=== PATIENT | female | born 1985 | race Caucasian/White ===

== ENCOUNTER 2017-11-24 16:25 | Emergency (ER) | payer SELFPAY ==
[2017-11-24 16:26] VITALS: BP 160/103; PULSE 93; RESP 18; TEMP 36.6; O2SAT 94; BMI 37.0
--- NOTE | 2017-11-24 16:37 | CT_ITS ---
STUDY: CT ABDOMEN AND PELVIS WITH CONTRAST REASON FOR EXAM: Female, 32 years old. RADIATION DOSAGE (If Supplied By Facility): CTDIvol = ( 16.31 ) mGy, DLP = ( 1148.28 ) mGycm TECHNIQUE: Transaxial images were obtained from the dome of the diaphragm to the symphysis pubis without oral contrast. 100CC ml of Isovue 250 contrast was administered. Sagittal and coronal images were reconstructed. Individualized dose optimization techniques were used for this CT. COMPARISON: None. FINDINGS: The visualized lung bases are unremarkable. The visualized portions of the heart are within normal limits. Normal liver. Normal gallbladder and extrahepatic biliary system. Normal spleen. Normal pancreas. Normal bilateral adrenal glands. Normal right kidney. Normal left kidney. Normal visualized stomach. Normal small intestine. There is colonic diverticulosis without acute inflammatory change. The proximal colon is unremarkable. The appendix is visualized and appears normal. Normal abdominal aorta. Normal inferior vena cava. Normal retroperitoneum. Normal urinary bladder. Uterus is prominent and retroverted. The myometrium is somewhat heterogenous and possibility of fibroids cannot be ruled out. There is a 3.3 x 2.2 x 2.7 cm left ovarian cyst. There is no pelvic lymphadenopathy. No free air or free fluid is seen within the peritoneal cavity. Normal abdominal wall. There is disc degeneration at L5-S1. CT/Abdomen/Pelvis W IV Cont ONLY IMPRESSION: 1. Diverticulosis without acute inflammatory change. 2. Prominent heterogenous uterus. Question fibroids. 3. Left ovarian cyst. Electronically Signed: Edmond Rubio DO at 18:03 EST Tel [phone], Service support ,
[2017-11-24] MEDS: 0.9% Normal Saline 1,000 ML 1000 ML IV (16:51)
--- NOTE | 2017-11-24 16:58 | ED.DCSUM_ITS ---
- ER Visit Summary Date of Service: 11/24/17 Chief Complaint: Bright red blood per rectum History of Present Illness: The patient is a 32 F who is otherwise healthy presents to the emergency department with bright red blood per rectum. The patient has had a mild diarrhea type illness for the past 3 days. States initially, on Monday, she was having 10 episodes of diarrhea. She states that the diarrhea slow but she still having 6-8 episodes a day. Today, she noticed bright red blood mixed with the loose stool. She has no history of Crohn's disease or ulcerative colitis. She denies any fevers but has had some chills. The patient has no history of underlying bowel disease. She has been on no recent antibiotics. She denies any recent travel. The patient is otherwise healthy and takes no daily medications. Physical Examination: Vital signs reviewed General: Well-nourished, well-developed Head: Normocephalic, atraumatic Eyes: Pupils equal and reactive, extraocular muscles intact Neck, supple, no lymphadenopathy Heart: Regular rate and rhythm Respiratory: No distress, clear bilaterally Abdomen: Soft, mildly tender in the left lower quadrant without rebound or guarding, nondistended, no peritoneal signs Back: Nontender Extremities: Nontender, no edema, no cords Skin: Normal color no rash Neuro: Alert and oriented, no focal or lateralizing deficits Test Results: [] Emergency Department Course and Treatment: The patient has no underlying history of inflammatory bowel disease. She has had increasing diarrhea with some bright red blood. We were actually able to get a stool sample. There was bright red blood and watery stool. There was no formed stool. Her abdomen was totally benign, but given her history I did want to evaluate her with imaging. Labs were obtained were unremarkable. Patient underwent CT which shows some mild diverticulosis, but no other acute abdominal process that would explain this. There was no significant colitis. I did send an enteric stool, but this is pending until tomorrow. The patient does have definitive bloody diarrhea, I do feel that the safest thing would be to cover her with Cipro at least until the enteric pathogens are back. She is tolerating p.o. She has no fever. She has no significant pain. I do feel that she is safe for outpatient therapy. She and her were counseled on concerning symptoms and reasons to return. The patient is given her first dose of antibiotics and will be discharged home. Treatment Plan: [] Disposition: Discharge Impression:. Bloody diarrhea This note was generated with [employer] dictation software. It may contain incorrect words, spelling, and punctuation that were not noted in review of the chart prior to signing ED Disposition - Plan for ED Patient: Chief Complaint: GI Bleed Instructions: ED Gastroenteritis Bacterial Prescriptions: Ciprofloxacin [Cipro] 500 mg PO BID #14 tab Referrals: Jami Upton DO [STAFF PHYSICIAN] -
[2017-11-24 17:00] LABS: Absolute Lymphocyte Count 2.96 X10^3/ul (0.83-4.51); Absolute Neutrophil Count 5.1 X10^3/uL (2.0-7.7); Basophil# 0.02 X10^3/uL; Basophil% 0.2 % (0-1); Eosinophil# 0.74 X10^3/uL; Eosinophils% 7.8 % (0-5); Hematocrit 42.1 % (37-47); Hemoglobin 14.5 g/dl (12.0-15.0); Lymphocyte # 2.96 X10^3/ul (4.0); Mean Corp Hgb Conc 34.4 g/gl (32-36); Mean Corpuscular Hgb 31.3 pg (27.0-32.0); Mean Corpuscular Volume 90.7 fL (81-99); Mean Platelet Vol. 9.5 fl (6.2-12.0); Monocyte# 0.68 X10^3/uL; Monocyte% 7.1 % (0-10); Neutrophil # 5.13 X10^3/uL (2.7-7.7); Neutrophil % 53.8 % (47-70); Platelet Count 347 K/mm3 (150-450); RBC Distribution Width CV 12.2 % (11.6-14.6); RBC Distribution Width SD 39.8 fl (35.1-43.9); Red Blood Count 4.64 M/mm3 (4.2-5.4); White Blood Count 9.5 K/mm3 (4.4-11.0)
[2017-11-24 17:02] LABS: POSITIVE COUNT NO; POSITIVE DIFFERENTIAL NO; POSITIVE MORPHOLOGY NO
[2017-11-24 17:18] LABS: AST(SGOT) 16 U/L (15-37); Alanine Aminotransfer ALT/SGPT 26 U/L (13-56); Albumin, Serum 3.7 g/dL (3.2-5.0); Alkaline Phosphatase 99 U/L (45-117); Anion Gap 8 (5-15); BUN 10 mg/dL (7-18); BUN/Creat Ratio 14.8 RATIO (10-20); Calcium,Total 8.3 mg/dL (8.5-10.1); Chloride 107 mmol/L (98-107); Creatinine, Serum 0.68 mg/dL (0.55-1.02); EST Glomerular Filtration Rate 106 mL/min (>60); Est Glom Filt Rate - Afr Amer 129 mL/min (>60); Estimated Creatinine Clearance 110.16 ml/min; Globulin 3.7 g/dL (2.2-4.2); Glucose 113 mg/dL (74-106); Potassium 3.8 mmol/L (3.5-5.1); Protein, Total 7.4 g/dL (6.4-8.2); Sodium Level 140 mmol/L (136-145)
[2017-11-24 17:53] LABS: Bacteria 0 SEEN /hpf (None Seen); Mucous, Urine 0 SEEN /hpf (<or=2+); Red Blood Cells-Urine 0 SEEN /hpf (0-5); White Blood Cells 0 SEEN /hpf (0-5)
[2017-11-24 17:56] LABS: Color, Urine Yellow (Yellow); Glucose, Dipstick Normal (Normal); Ketone-Dipstick Negative (Negative); Leukocyte Esterase-Dipstick Negative /ul (Negative); Nitrite-Dipstick Negative (Negative); Occult Blood-Urine 10 /ul (Negative); Protein-Dipstick Negative (Negative); Specific Gravity, Urine 1.005 (1.002-1.030); Urine Bilirubin Dipstick Negative (Negative); Urine Clarity Clear (Clear); Urine Urobilinogen Normal (Normal)
[2017-11-24 18:01] LABS: Internal QC Validated? YES +Cl - CLEAR BKGD; Pregnancy, Urine Negative Negative
[2017-11-24 18:13] LABS: Squamous Epithelial Cells - UA 5-10 SEEN /hpf (5-10)
[2017-11-24 18:45] VITALS: BP 145/90; PULSE 89; RESP 14; O2SAT 99
[2017-11-24] MEDS: Ciprofloxacin 500 MG Tablet PO (18:48)
== END 2017-11-24 18:48 | disposition home or self-care (01) ==
LOC: ED 16:59
PROVIDERS: Emergency Provider Emergency Medicine
DX: K92.1 Melena (principal)
CPT/HCPCS: 74177; 80053; 81001; 81025; 85025; 87506; 99284; J7030; Q9967; A4216

== ENCOUNTER → 2018-07-05 11:10 | Outpatient (CLI) | payer MEDICAID, SELFPAY ==
--- NOTE | 2018-07-05 11:12 | RAD_ITS ---
STUDY: X-RAY CHEST REASON FOR EXAM: Female, 32 years old. Shortness of breath and wheezing TECHNIQUE: PA and lateral views of the chest. COMPARISON: None. FINDINGS: The lungs are clear and expanded. There is no demonstrated pleural abnormality. Normal size heart. Normal mediastinum and sabrina. Normal visualized pulmonary arteries. There is tortuosity of the ascending thoracic aorta. Normal visualized thoracic spine. Normal visualized ribs, clavicles, and shoulders. There is no demonstrated abnormality of the visualized soft tissue structures of the upper abdomen. RAD/Chest PA and Lateral IMPRESSION: 1. No airspace consolidation or pleural effusion. 2. Thoracic aortic tortuosity. Electronically Signed: Anthony Velásquez MD at 16:07 EDT , Service support ,
--- NOTE | 2018-07-06 10:42 | SPIR ---
Spirometry PFT Testing Spirometry PFT Testing: INTRODUCTION: The patient is a 32-year-old female that presents for spirometry secondary to a diagnosis of chronic cough. Respiratory therapy reports good patient effort. Bronchodilators were used during testing. INTERPRETATION: Forced expiration spirometry revealed no evidence of a fixed airflow obstruction. There was a partial, albeit not significant response to aerosolized bronchodilators. Spirograms are of good quality and plateau normally. The respiratory flow volume loop appears normal. IMPRESSION: Grossly normal pulmonary function testing. If asthma is of clinical consideration, a methacholine challenge can be performed.
[2018-07-10 03:07] LABS: Endomysial Antibody IgA Negative (Negative); Immunoglobulin A 192 mg/dL (87-352)
[2018-07-10 11:40] LABS: Immunoglobulin E 73 IU/mL (0-100); t-Transglutaminase IgA <2 U/mL (0-3)
== END ==
PROVIDERS: Family Provider Family Medicine; PCP Family Medicine; Referring Provider Family Medicine; Visit Provider Family Medicine
DX: R06.2 Wheezing (principal); Z91.018 Allergy to other foods; K92.1 Melena
CPT/HCPCS: 36415; 71046; 82784; 82785; 83516; 86255; 94060

== ENCOUNTER 2018-07-18 09:47 | Day surgery (SDC) | payer MEDICAID, SELFPAY ==
[2018-07-18] VITALS (8 sets, daily range): BP systolic 110–144; BP diastolic 74–95; PULSE 65–87; RESP 16–18; TEMP 36.2–36.7; O2SAT 97–100; BMI 33.4
[2018-07-18 10:12] LABS: Internal QC Validated? YES +Cl - CLEAR BKGD; Pregnancy, Urine Negative Negative
--- NOTE | 2018-07-18 11:15 | OP.ENDO_ITS ---
Patient Name: Claudine Coles Procedure Date: 07/18/2018 10:42 AM Date of : 1985 Age: 32 Procedure: Colonoscopy Indications: Rectal bleeding Providers: Radha Rios MD Referring MD: Radha Rios MD Medicines: Monitored Anesthesia Care Patient Profile: Last Colonoscopy: none. The patient's first colonoscopy is today. Complications: No immediate complications. Procedure: Pre-Anesthesia Assessment: - Prior to the procedure, a History and Physical was performed, and patient medications and allergies were reviewed. The patient's tolerance of previous anesthesia was also reviewed. The risks and benefits of the procedure and the sedation options and risks were discussed with the patient. All questions were answered, and informed consent was obtained. Prior Anticoagulants: The patient has taken no previous anticoagulant or antiplatelet agents. ASA Grade Assessment: I - A normal, healthy patient. After reviewing the risks and benefits, the patient was deemed in satisfactory condition to undergo the procedure. After I obtained informed consent, the scope was passed under direct vision. Throughout the procedure, the patient's blood pressure, pulse, and oxygen saturations were monitored continuously. The colonoscope was introduced through the anus and advanced to the cecum, identified by the appendiceal orifice, ileocecal valve and palpation. The colonoscopy was performed without difficulty. The patient tolerated the procedure well. The quality of the bowel preparation was good. Scope In: 10:53:28 AM Scope Withdrawal Time 0 hours 11 minutes 6 seconds Scope Out: 11:10:18 AM Total Procedure Duration Time 0 hours 16 minutes 50 seconds Findings: The entire examined colon appeared normal. Internal hemorrhoids were found [Method Found]. The hemorrhoids were Grade I (internal hemorrhoids that do not prolapse). Hemorrhoids were found on perianal exam. The exam was otherwise without abnormality. Impression: - The entire examined colon is normal. - Internal hemorrhoids. - Hemorrhoids found on perianal exam. - The examination was otherwise normal. - No specimens collected. Recommendation: - Discharge patient to home. - Continue present medications. - Repeat colonoscopy at age 49 for screening purposes. Procedure Code(s): --- Professional --- 06123, Colonoscopy, flexible; diagnostic, including collection of specimen(s) by brushing or washing, when performed (separate procedure) Diagnosis Code(s): --- Professional --- K64.0, First degree hemorrhoids K62.5, Hemorrhage of anus and rectum CPT copyright 2017 [employer]. All rights reserved. The codes documented in this report are preliminary and upon pre coder review may be revised to meet current compliance requirements. MD Radha Aquino MD 07/18/2018 11:15:02 AM This report has been signed electronically. Number of Addenda: 0 Note Initiated On: 07/18/2018 10:42 AM
== END 2018-07-18 12:25 | disposition home or self-care (01) ==
LOC: EN 09:48 → AC 09:50
PROVIDERS: Anesthesiology; Family Provider Family Medicine; PCP Family Medicine; Referring Provider Surgery; Visit Provider Surgery
PROC: 0DJD8ZZ Inspection of Lower Intestinal Tract, Via Natural or Artificial Opening Endoscopic (ICD-10-PCS; CPT 45378; principal; 2018-07-18 10:55)
DX: K64.0 First degree hemorrhoids (principal); Z87.19 Personal history of other diseases of the digestive system
CPT/HCPCS: 45378; 81025; J7120

== ENCOUNTER 2018-07-20 11:35 | Emergency (ER) | payer MEDICAID, SELFPAY ==
[2018-07-20 11:36] VITALS: BP 164/101; PULSE 81; RESP 17; TEMP 36.6; O2SAT 97; BMI 33.4
--- NOTE | 2018-07-20 12:12 | EKG12_ITS ---
Test Reason : DIZZINESS Blood Pressure : / mmHG Vent. Rate : 075 BPM Atrial Rate : 075 BPM P-R Int : 152 ms QRS Dur : 092 ms QT Int : 396 ms P-R-T Axes : 040 -03 000 degrees QTc Int : 442 ms Normal sinus rhythm Minimal voltage criteria for LVH, may be normal variant Nonspecific T wave abnormality Abnormal ECG Confirmed by LYNDA COLON ([id number]), editor city ANNA VALLADARES ([id number]) on 07/24/2018 8:41:57 AM Referred By: MR Confirmed By:LYNDA COLON
[2018-07-20 12:26] LABS: Absolute Lymphocyte Count 2.79 X10^3/ul (0.83-4.51); Basophil# 0.02 X10^3/uL; Basophil% 0.2 % (0-1); Eosinophil# 0.85 X10^3/uL; Eosinophils% 9.3 % (0-5); Hematocrit 42.2 % (37-47); Hemoglobin 14.1 g/dl (12.0-15.0); Lymphocyte # 2.79 X10^3/ul (4.0); Lymphocyte % 30.6 % (19-41); Mean Corp Hgb Conc 33.4 g/gl (32-36); Mean Corpuscular Volume 89.8 fL (81-99); Mean Platelet Vol. 10.7 fl (6.2-12.0); Monocyte# 0.47 X10^3/uL; Monocyte% 5.1 % (0-10); Neutrophil # 4.98 X10^3/uL (2.7-7.7); Neutrophil % 54.6 % (47-70); Platelet Count 318 K/mm3 (150-450); RBC Distribution Width CV 12.8 % (11.6-14.6); RBC Distribution Width SD 41.6 fl (35.1-43.9); White Blood Count 9.1 K/mm3 (4.4-11.0)
[2018-07-20 12:28] LABS: POSITIVE COUNT NO; POSITIVE DIFFERENTIAL NO; POSITIVE MORPHOLOGY NO
[2018-07-20 12:36] LABS: Prothrombin Time (Protime)PT. 12.9 SECONDS (11.7-14.9)
[2018-07-20 12:37] LABS: Partial Thromboplast Time 26.9 Seconds (24.1-36.2)
[2018-07-20 12:38] LABS: Anion Gap 6 (5-15); BUN 10 mg/dL (7-18); BUN/Creat Ratio 13.3 RATIO (10-20); Calcium,Total 8.5 mg/dL (8.5-10.1); Chloride 107 mmol/L (98-107); Creatinine, Serum 0.75 mg/dL (0.55-1.02); EST Glomerular Filtration Rate 94 mL/min (>60); Est Glom Filt Rate - Afr Amer 113 mL/min (>60); Estimated Creatinine Clearance 99.88 ml/min; Glucose 85 mg/dL (74-106); Potassium 3.7 mmol/L (3.5-5.1); Sodium Level 139 mmol/L (136-145)
--- NOTE | 2018-07-20 13:45 | ED.VISSUMM ---
- ER Visit Summary Date of Service: 07/20/18 Chief Complaint: Rectal bleeding History of Present Illness: The patient is a 32 F presenting for evaluation secondary to rectal bleeding. Patient reports that she had a colonoscopy performed on Monday secondary to an episode of rectal bleeding that happened back in November. Reports that she has not had any rectal bleeding since November. Patient states that today she developed about 4-5 episodes of grossly bloody stools. She also reports that she developed some dizziness. She describes this as a unsteady feeling that is worse with change in position. She denies any visual changes numbness weakness chest pain or shortness of breath. She is not any sort of anticoagulants. Patient reports that her colonoscopy did result as being normal with some mild internal hemorrhoids that were nonfriable and nonbleeding. Physical Examination: Vital signs are within normal limits, patient is afebrile. General: Patient is well-nourished well-developed and in no acute distress. Head: Normocephalic, atraumatic Eyes: Pupils equal round and reactive bilaterally, extra occular motion intact bialterally ENT: Moist mucous membranes Neck: Supple, no lymphadenopathy, no JVD, no meningismus CVS: Heart regular rate and rhythm, no murmurs, rubs or gallops, radial pulses 2+ bilaterally Resp: Respirations nondistressed, lung sounds clear bilaterally Abdomen: Soft, nontender, nondistended, no palpable masses, normal bowel sounds Back: Nontender Extremities: Nontender, atraumatic, active full range of motion, no peripheral edema Skin: warm, no rashes, no petechia Neuro: Alert and oriented x 4, CN 2-12 intact, no lateralizing neurological defecits Psyc: Normal affect Test Results: CBC and chemistry unremarkable Emergency Department Course and Treatment: Patient presented for evaluation secondary to rectal bleeding. An EKG was obtained which showed a sinus rate of [address] segments normal T waves normal intervals no evidence of acute ischemia or arrhythmia. Blood work was unremarkable. I performed a digital rectal exam on the patient and was not able to identify any gross blood she does have a small external hemorrhoid at about 1:00 that is nonthrombosed and nonbleeding. I discussed patient's case with her surgeon Dr. Rios who recommended an anoscopy. I did perform this on the patient, in the patient's rectum there was not any evidence of bleeding but as the scope was removed there was evidence of active bleeding from a internal hemorrhoid. This is likely the cause of the patient's bleeding. Patient's dizziness seems to be more of a positional and a vertiginous type feeling rather than a syncopal or presyncopal type feeling. Patient had a [place]-Hallpike maneuver performed and every time she went from lying to sitting up she had vertigo. She did have obvious nystagmus with this. I will treat the patient with meclizine. She will follow-up with general surgery. Disposition: Discharge Impression: 1. Bleeding internal hemorrhoid 2. Peripheral vertigo This note was generated with [employer] dictation software. It may contain incorrect words, spelling, and punctuation that were not noted in review of the chart prior to signing ED Disposition - Plan for ED Patient: Disposition: Home or Assisted Living Chief Complaint: Dizziness Diagnosis: Internal hemorrhoid, bleeding, Peripheral vertigo Instructions: ED BPV Vertigo, ED Hemorrhoids Prescriptions: Hydrocortisone [Anusol Hc] 25 mg RECTAL BID PRN #20 suppos. Meclizine HCl 25 mg PO TID #18 tab Referrals: Radha Rios MD [STAFF PHYSICIAN] -
--- NOTE | 2018-07-20 13:50 | ED.DCSUM_ITS ---
- ER Visit Summary Date of Service: 07/20/18 Chief Complaint: Rectal bleeding History of Present Illness: The patient is a 32 F presenting for evaluation secondary to rectal bleeding. Patient reports that she had a colonoscopy performed on Monday secondary to an episode of rectal bleeding that happened back in November. Reports that she has not had any rectal bleeding since November. Patient states that today she developed about 4-5 episodes of grossly bloody stools. She also reports that she developed some dizziness. She describes this as a unsteady feeling that is worse with change in position. She denies any visual changes numbness weakness chest pain or shortness of breath. She is not any sort of anticoagulants. Patient reports that her colonoscopy did result as being normal with some mild internal hemorrhoids that were nonfriable and nonbleeding. Physical Examination: Vital signs are within normal limits, patient is afebrile. General: Patient is well-nourished well-developed and in no acute distress. Head: Normocephalic, atraumatic Eyes: Pupils equal round and reactive bilaterally, extra occular motion intact bialterally ENT: Moist mucous membranes Neck: Supple, no lymphadenopathy, no JVD, no meningismus CVS: Heart regular rate and rhythm, no murmurs, rubs or gallops, radial pulses 2+ bilaterally Resp: Respirations nondistressed, lung sounds clear bilaterally Abdomen: Soft, nontender, nondistended, no palpable masses, normal bowel sounds Back: Nontender Extremities: Nontender, atraumatic, active full range of motion, no peripheral edema Skin: warm, no rashes, no petechia Neuro: Alert and oriented x 4, CN 2-12 intact, no lateralizing neurological de fecits Psyc: Normal affect Test Results: CBC and chemistry unremarkable Emergency Department Course and Treatment: Patient presented for evaluation secondary to rectal bleeding. An EKG was obtained which showed a sinus rate of [address] segments normal T waves normal intervals no evidence of acute ischemia or arrhythmia. Blood work was unremarkable. I performed a digital rectal exam on the patient and was not able to identify any gross blood she does have a small external hemorrhoid at about 1:00 that is nonthrombosed and nonbleeding. I discussed patient's case with her surgeon Dr. Rios who recommended an anoscopy. I did perform this on the patient, in the patient's rectum there was not any evidence of bleeding but as the scope was removed there was evidence of active bleeding from a internal hemorrhoid. This is likely the cause of the patient's bleeding. Patient's dizziness seems to be more of a positional and a vertiginous type feeling rather than a syncopal or presyncopal type feeling. Patient had a [place]-Hallpike maneuver performed and every time she went from lying to sitting up she had vertigo. She did have obvious nystagmus with this. I will treat the patient with meclizine. She will follow-up with general surgery. Disposition: Discharge Impression: 1. Bleeding internal hemorrhoid 2. Peripheral vertigo This note was generated with [employer] dictation software. It may contain incorrect words, spelling, and punctuation that were not noted in review of the chart prior to signing ED Disposition - Plan for ED Patient: Disposition: Home or Assisted Living Chief Complaint: Dizziness Diagnosis: Internal hemorrhoid, bleeding, Peripheral vertigo Instructions: ED BPV Vertigo, ED Hemorrhoids Prescriptions: Hydrocortisone [Anusol Hc] 25 mg RECTAL BID PRN #20 suppos. Meclizine HCl 25 mg PO TID #18 tab Referrals: Radha Rios MD [STAFF PHYSICIAN] -
[2018-07-20] MEDS: Meclizine HCl 25 MG Tablet PO (14:08)
== END 2018-07-20 14:09 | disposition home or self-care (01) ==
PROVIDERS: Emergency Provider Emergency Medicine; Family Provider Family Medicine; PCP Family Medicine
DX: K64.8 Other hemorrhoids (principal); H81.399 Other peripheral vertigo, unspecified ear; J45.909 Unspecified asthma, uncomplicated
CPT/HCPCS: 46600; 80048; 85025; 85610; 85730; 93005; 99285; A4216

== ENCOUNTER → 2018-12-04 09:59 | Outpatient (CLI) | payer MEDICAID, SELFPAY ==
[2018-11-15 11:11] VITALS: BMI 36.6
--- NOTE | 2018-12-05 09:47 | PFT ---
INTRODUCTION: The patient is a 33-year-old female that presents for pulmonary function studies secondary to a diagnosis of COPD. Respiratory therapy reports good patient effort. Bronchodilators were used during testing. INTERPRETATION: Forced expiration spirometry demonstrates no evidence of a large airways obstructive ventilatory defect. There was no significant response to aerosolized bronchodilators, based upon strict ATS criteria. Spirograms are of good quality and plateau normally. The respiratory flow volume loop appears normal. Body plethysmography was performed and reveals lung volumes to be within normal limits. Diffusing capacity by single breath CO is within normal limits at 82% of predicted. IMPRESSION: Normal pulmonary function studies.
== END ==
PROVIDERS: Family Provider Family Medicine; PCP Family Medicine; Referring Provider Family Medicine; Visit Provider Family Medicine
DX: J44.9 Chronic obstructive pulmonary disease, unspecified (principal)
CPT/HCPCS: 94060; 94726; 94729

== ENCOUNTER → 2019-07-26 08:57 | Outpatient (CLI) | payer MEDICAID, SELFPAY ==
[2019-07-09 15:37] VITALS: BMI 36.6
[2019-07-26 12:33] LABS: Hematocrit 44.2 % (37-47); Hemoglobin 14.6 g/dL (12.0-15.0); Mean Corpuscular Hgb 30.1 pg (27.0-32.0); Mean Corpuscular Volume 91.1 fL (81-99); Mean Platelet Vol. 10.1 fl (6.2-12.0); Platelet Count 367 K/mm3 (150-450); RBC Distribution Width CV 12.1 % (11.6-14.6); RBC Distribution Width SD 40.3 fl (35.1-43.9); Red Blood Count 4.85 M/mm3 (4.2-5.4)
[2019-07-26 13:01] LABS: Anion Gap 11 (5-15); BUN 10 mg/dL (7-18); BUN/Creat Ratio 12.4 RATIO (10-20); Calcium,Total 8.7 mg/dL (8.5-10.1); Chloride 104 mmol/L (98-107); Cholesterol 207 mg/dL (200); Creatinine, Serum 0.81 mg/dL (0.55-1.02); EST Glomerular Filtration Rate 86 mL/min (>60); Est Glom Filt Rate - Afr Amer 104 mL/min (>60); Glucose 115 mg/dL (74-106); High Density Lipoprotein 41 mg/dL; Potassium 3.8 mmol/L (3.5-5.1); Sodium Level 139 mmol/L (136-145); Thyroid Stim Hormone (TSH) 1.68 uIU/mL (0.358-3.74); Triglycerides 98 mg/dL; Very Low Density Lipoprotein 20 mg/dL (5-40)
== END ==
PROVIDERS: Family Provider Family Medicine; PCP Family Medicine; Visit Provider Nurse Practitioner Family
DX: I10 Essential (primary) hypertension (principal)
CPT/HCPCS: 36415; 80048; 80061; 84443; 85027

== ENCOUNTER → 2019-08-19 08:09 | Outpatient (CLI) | payer MEDICAID, SELFPAY ==
[2019-08-01 15:37] VITALS: BMI 38.2
--- NOTE | 2019-08-19 08:10 | ECHOD_ITS ---
Version 2 Reason For Study: DYSPNEA Procedure This was a 2D Doppler, Color Flow transthoracic echocardiogram. Exam performed in department. Left Ventricle Normal LV size. Left ventricular systolic function is normal. The estimated ejection fraction is 60 %. No regional wall motion abnormalities noted. Right Ventricle Normal RV size. Normal systolic function. Atria Normal left atrium. Normal right atrium. Mitral Valve Normal mitral valve. Tricuspid Valve Normal tricuspid valve. Mild (1+) tricuspid valve insufficiency. Pulmonary artery systolic pressure is 28 mmHg. Aortic Valve Trisinus/trileaflet aortic valve. Pulmonic Valve Normal pulmonic valve. Great Vessels Normal aortic root. The pulmonary artery is normal size. Normal inferior vena cava. Pericardium/Pleural No pericardial effusion. MMode/2D Measurements & Calculations LVIDd: 4.6 cm IVSd: 1.0 cm Ao root diam: 4.1 cm LVIDs: 3.4 cm LVPWd: 1.4 cm RVDd: 2.6 cm FS: 27.6 % LAV(MOD-bp): 39.6 ml LVAd ap4: 31.4 cm2 SV(MOD-sp4): 43.5 ml LAV(MOD-bp) Indexed: 18.5 ml/m2 EDV(MOD-sp4): 97.2 ml LAV(MOD-sp2): 37.8 ml EDV(sp4-el): 103.4 ml LAV(MOD-sp4): 41.6 ml LVAs ap4: 20.7 cm2 ESV(MOD-sp4): 53.7 ml ESV(sp4-el): 54.6 ml EF(MOD-sp4): 44.7 % EF(sp4-el): 47.2 % SV(sp4-el): 48.9 ml LA A4 area: 15.8 cm2 LA dimension(2D): 4.1 cm RA A4 area: 12.3 cm2 Doppler Measurements & Calculations MV E max vinicius: 64.8 cm/sec Lat Peak E' Vinicius: 12.1 cm/sec Med Peak E' Vinicius: 5.9 cm/sec MV A max vinicius: 81.5 cm/sec E/E' lat: 5.3 E/E' med: 11.0 MV E/A: 0.79 Ao V2 max: 186.6 cm/sec LV V1 max: 114.2 cm/sec TR max vinicius: 243.1 cm/sec Ao max P.9 mmHg LV V1 max P.2 mmHg TR max P.6 mmHg Interpretation Summary Normal LV size. Left ventricular systolic function is normal. The estimated ejection fraction is 60 %. Mild (1+) tricuspid valve insufficiency. Pulmonary artery systolic pressure is 28 mmHg. Structurally normal valves. Ordering Physician: Rory August Referring Physician: Rory August Performed By: Gin Leos, TOMEKA, RVT
--- NOTE | 2019-08-19 08:43 | RAD_ITS ---
STUDY: X-RAY - RIGHT ANKLE REASON FOR EXAM: Female, 33 years old. Injury. Pain. TECHNIQUE: 3 view(s) of the ankle. COMPARISON: None. FINDINGS: No acute fracture, dislocation or osseous destruction. Ankle mortise well aligned. No significant joint space narrowing. No significant productive changes. No significant soft tissue swelling. RAD/Ankle min 3 Views IMPRESSION: Right ankle intact Electronically Signed: Damon Saeed DO at 9:07 EST Tel , Service support ,
--- NOTE | 2019-08-19 08:53 | EKG12_ITS ---
Test Reason : PRE OP Blood Pressure : / mmHG Vent. Rate : 093 BPM Atrial Rate : 093 BPM P-R Int : 152 ms QRS Dur : 094 ms QT Int : 372 ms P-R-T Axes : 064 010 042 degrees QTc Int : 462 ms Normal sinus rhythm Normal ECG Confirmed by MILLY ADORNO, MARVEL ([id number]), acquisition editor RENÉ ROSEN ([id number]) on 08/20/2019 10:06:45 AM Referred By: Rory August Confirmed By:MARVEL ATKINS MD
== END ==
PROVIDERS: Family Provider Family Medicine; PCP Family Medicine; Referring Provider Family Medicine; Visit Provider Family Medicine
DX: R06.02 Shortness of breath (principal); S96.911A Strain of unspecified muscle and tendon at ankle and foot level, right foot, initial encounter; I10 Essential (primary) hypertension
CPT/HCPCS: 73610; 93005; 93306

== ENCOUNTER → 2020-06-23 17:10 | Outpatient (CLI) | payer MEDICAID, SELFPAY ==
[2020-06-23 16:35] VITALS: BMI 38.2
[2020-06-23 18:13] LABS: Erythrocyte Sedimentation Rate 10 mm/hr (0-20)
[2020-06-23 18:59] LABS: CRP < 2.90 mg/L (0.0-3.0); Rheumatoid Factor < 10.0 IU/mL (<15)
[2020-06-25 17:39] LABS: ANTINUCLEAR ANTIBODIES DIRECT Negative (Negative)
== END ==
PROVIDERS: PCP Family Medicine; Referring Provider Family Medicine; Visit Provider Family Medicine
DX: M25.50 Pain in unspecified joint (principal)
CPT/HCPCS: 36415; 84550; 85652; 86038; 86140; 86431

== ENCOUNTER → 2020-07-10 12:13 | Outpatient (CLI) | payer MEDICAID, SELFPAY ==
[2020-07-09 11:35] VITALS: BMI 37.9
[2020-07-10 15:41] LABS: Free T3 2.5 pg/mL (2.18-3.98); T4 Free Direct 1.08 ng/dL (0.76-1.46); Thyroid Stim Hormone (TSH) 1.13 uIU/mL (0.358-3.74)
== END ==
PROVIDERS: PCP Family Medicine; Referring Provider Internal Medicine; Visit Provider Internal Medicine
DX: R94.6 Abnormal results of thyroid function studies (principal)
CPT/HCPCS: 36415; 84439; 84443; 84481

== ENCOUNTER → 2020-07-14 15:27 | Outpatient (CLI) | payer MEDICAID, SELFPAY ==
[2020-07-09 11:35] VITALS: BMI 37.9
--- NOTE | 2020-07-14 15:28 | US_ITS ---
STUDY: THYROID ULTRASOUND REASON FOR EXAM: Female, 34 years old. left thyroid enlargement TECHNIQUE: Ultrasound evaluation of the thyroid was performed with real-time and static laura-scale imaging. COMPARISON: None. FINDINGS: RIGHT LOBE: The right lobe of the thyroid gland measures 5.7 x 1.8 x 1.3 cm. There is a homogeneous echotexture. There are no demonstrated solid, cystic or complex lesions. LEFT LOBE: The left lobe of the thyroid gland measures 5.4 x 1.5 x 1.3 cm. There is a homogeneous echotexture. There are no demonstrated solid, cystic or complex lesions. ISTHMUS: The isthmus measures 3 mm. The regional lymph nodes are normal. US/Thyroid IMPRESSION: Normal ultrasound examination of the thyroid. Electronically Signed: Rodri Clark MD at 17:40 EDT , Service support ,
== END ==
PROVIDERS: PCP Family Medicine; Referring Provider Internal Medicine; Visit Provider Internal Medicine
DX: R94.6 Abnormal results of thyroid function studies (principal)
CPT/HCPCS: 76536

== ENCOUNTER 2021-01-12 10:09 | Emergency (ER) | payer MEDICAID, SELFPAY ==
[2020-07-09 11:35] VITALS: BMI 37.9
[2021-01-12 10:10] VITALS: BP 164/101; PULSE 101; RESP 20; TEMP 36; O2SAT 100; BMI 38.7
--- NOTE | 2021-01-12 10:30 | ED.VIS.GEN ---
History of Present Illness Chief Complaint: Allergic Reaction Informant: Patient Narrative: 35-year-old female states that last night after dinner she began to have a sensation that her throat was swelling. She took a loratadine in [place] but better. Symptoms are still present today. She was able to eat and drink some this morning. She is not experiencing the need to expectorate her secretions. She denies any rashes. No history of this. - Past Medical History (1) COPD (chronic obstructive pulmonary disease) Status: Chronic (2) GERD (gastroesophageal reflux disease) Status: Chronic (3) Gestational diabetes Status: Chronic (4) Hypertension Status: Chronic Past Medical History - Allergies and Home Meds Allergies/Adverse Reactions: Allergies clove Allergy (Verified 01/12/21 10:12) Other Primary Care Physician: Nayana King MD [Primary Care Provider] - As Needed Surgical History: noncontributory Lives: Spouse/ Significant Other Smoking Status: Never smoker Drugs: None Review of Systems General: Denies: Chills, Fever, Sweats Eyes: Denies: Visual changes - bilaterally, Diplopia ENT: Reports: - - Throat swelling. Denies: Rhinorrhea, Sore throat Cardiovascular: Denies: Chest pain, Palpitations Respiratory: Denies: Dyspnea, Cough, Dyspnea on exertion Gastrointestinal: Denies: Abdominal pain, Nausea, Vomiting, Diarrhea, Melena, Hematochezia Genitourinary: Denies: Dysuria, Hematuria, Frequency Musculoskeletal: Denies: Back pain, Extremity Pain Skin: Denies: Rash, Wounds Neurological: Denies: Headache, Weakness, Numbness Physical Exam Vital Signs/Narrative: Vital Signs Temp Pulse Resp BP Pulse Ox 01/12/21 10:10 96.8 F L 101 H 20 H 164/101 H 100 Inital Vital Signs reviewed: Yes General: Well nourished, Well developed, No Acute Distress Head: Normocephalic, Atraumatic Eyes: Perrl, EOMI ENT: Moist mucous membranes, No rhinorrhea, - - Tonsillar enlargement Neck: Supple, Nontender Cardiovascular: Regular rate, Regular rhythm, No murmurs Respiratory: No distress, CTA bilaterally, Chest nontender Abdomen: Soft, Nontender, Nondistended, Normal bowel sounds Back: Nontender, Normal Inspection Extremities: Nontender, No edema Skin: Normal color, No rash Neurological: Alert, Oriented x3, Cranial nerves II-XII grossly intact, Normal Strength, Normal Sensation Psychological: Normal affect, Normal Mood Diagnostic/Tx/Re-eval Clinical Impression(s) from Imaging Studies Soft Tissue Neck X-Ray 01/12/21 10:36 IMPRESSION: Thickening of the epiglottis. The referring physician was notified. Electronically Signed: Sandip Cox MD at 11:27 EDT , Service support , ED Disposition - Plan for ED Patient: Disposition: Home or Assisted Living Diagnosis: Tonsillitis Instructions: ED Tonsillitis Prescriptions: Amox/Clavulanate Tablet [Augmentin Tablet] 875 mg PO Q12H #20 tab Transmission Status: Received by [id number] Referrals: Nayana King MD [Primary Care Provider] - As Needed
--- NOTE | 2021-01-12 10:36 | RAD_ITS ---
STUDY: X-RAY - SOFT TISSUE NECK REASON FOR EXAM: Female, 35 years old. Throat swelling TECHNIQUE: 2 view(s) of the neck were obtained. COMPARISON: None. FINDINGS: Normal visualized nasopharynx, oropharynx, hypopharynx. There is thickening of the epiglottis. There is also thickening of the base of the tongue possible tonsillar enlargement. Normal visualized subglottic tracheal air column. Normal prevertebral soft tissue structures. Loss of the normal cervical lordosis. The soft tissue structures are unremarkable. RAD/Neck for Soft Tissue IMPRESSION: Thickening of the epiglottis. The referring physician was notified. Electronically Signed: Sandip Cox MD at 11:27 EDT , Service support ,
[2021-01-12] MEDS: MethylPREDNISolone 125 MG/2 ML Vial IV (12:07)
[2021-01-12 12:08] LABS: Absolute Neutrophil Count 8.1 X10^3/uL (2.0-7.7); Basophil# 0.01 X10^3/uL; Basophil% 0.1 % (0-1); Eosinophil# 0.36 X10^3/uL; Eosinophils% 3.2 % (0-5); Hematocrit 45.2 % (37-47); Hemoglobin 14.3 g/dL (12.0-15.0); Lymphocyte % 19.6 % (19-41); Mean Corp Hgb Conc 31.6 g/dL (32-36); Mean Corpuscular Hgb 28.3 pg (27.0-32.0); Mean Corpuscular Volume 89.5 fL (81-99); Mean Platelet Vol. 9.9 fl (6.2-12.0); Monocyte# 0.54 X10^3/uL; Monocyte% 4.8 % (0-10); NRBC Flagged by Analyzer 0 % (0-5); Neutrophil # 8.05 X10^3/uL (2.7-7.7); Neutrophil % 71.9 % (47-70); Platelet Count 385 K/mm3 (150-450); RBC Distribution Width CV 12.5 % (11.6-14.6); RBC Distribution Width SD 40.8 fl (35.1-43.9); Red Blood Count 5.05 M/mm3 (4.2-5.4); White Blood Count 11.2 K/mm3 (4.4-11.0)
[2021-01-12] MEDS: 0.9% Normal Saline 1,000 ML 150 ML IV (12:08)
[2021-01-12 12:10] VITALS: PULSE 88; RESP 17; O2SAT 98
--- NOTE | 2021-01-12 12:12 | PCM.PN.BLA ---
Progress Note Asked to see the patient at the request of Dr. Zaragoza for epiglottitis. Patient is a 35-year-old white female who started to have a sore throat and a sensation that her throat was closing yesterday. She took loratadine and Advil yesterday and noticed some improvement. The symptoms remain today and seem to be getting worse. She denies any fever cough. She states she had Covid in the summer. A lateral neck x-ray revealed thickening of the epiglottis. PE: Awake alert and in no acute distress. Tympanic membrane external auditory canals within normal limits. Nasal exam reveals no purulence or polyp. Mouth oropharynx reveals 3+ tonsils with a slight amount of purulence on each tonsil. The peritonsillar area is quiet. Neck is supple no adenopathy or masses. Flexible laryngoscopy: 4% topical lidocaine was sprayed in the patient's right nasal cavity. After sufficient anesthesia, a scope was inserted into the patient's nose into the nasopharynx. The nasopharynx was normal. The tonsils were hypertrophic as were the lingual tonsils. The epiglottis is normal. There is no erythema or swelling. Supraglottis is normal. The airway is wide open. There is bilateral vocal cord motion. Piriform sinuses are normal. Assessment: Acute tonsillitis no evidence of epiglottitis Plan: The patient may go home on Augmentin. Follow-up as needed. STROKE Vital Signs/Narrative: Vital Signs Temp Pulse Resp BP Pulse Ox 01/12/21 10:10 96.8 F L 101 H 20 H 164/101 H 100
[2021-01-12 12:18] LABS: Prothrombin Time (Protime)PT. 12.4 SECONDS (11.7-14.9)
[2021-01-12 12:19] LABS: Partial Thromboplast Time 26.2 Seconds (24.1-36.2)
[2021-01-12 12:22] LABS: AST(SGOT) 16 U/L (15-37); Alanine Aminotransfer ALT/SGPT 29 U/L (13-56); Albumin, Serum 4.1 g/dL (3.2-5.0); Alkaline Phosphatase 90 U/L (45-117); Anion Gap 7 (5-15); BUN 11 mg/dL (7-18); BUN/Creat Ratio 13.4 RATIO (10-20); Calcium,Total 9.2 mg/dL (8.5-10.1); Chloride 104 mmol/L (98-107); Creatinine, Serum 0.82 mg/dL (0.55-1.02); EST Glomerular Filtration Rate 83 mL/min (>60); Est Glom Filt Rate - Afr Amer 101 mL/min (>60); Estimated Creatinine Clearance 88.79 ml/min; Globulin 4.1 g/dL (2.2-4.2); Glucose 153 mg/dL (74-106); Potassium 3.5 mmol/L (3.5-5.1); Protein, Total 8.2 g/dL (6.4-8.2); Sodium Level 138 mmol/L (136-145)
[2021-01-12 12:37] LABS: Lactic Acid 1.6 mmol/L (0.4-1.9)
[2021-01-12 12:59] VITALS: PULSE 88; RESP 17; O2SAT 98
== END 2021-01-12 13:02 | disposition home or self-care (01) ==
PROVIDERS: Emergency Provider Emergency Medicine; PCP Internal Medicine
DX: J03.90 Acute tonsillitis, unspecified (principal); I10 Essential (primary) hypertension; K21.9 Gastro-esophageal reflux disease without esophagitis; J44.9 Chronic obstructive pulmonary disease, unspecified; Z79.899 Other long term (current) drug therapy
CPT/HCPCS: 70360; 80053; 83605; 85025; 85610; 85730; 87040; 96374; 99284; J7030

== ENCOUNTER → 2021-03-01 08:17 | Outpatient (CLI) | payer MEDICAID, SELFPAY ==
--- NOTE | 2021-03-01 08:35 | RAD_ITS ---
STUDY: X-RAY - ESOPHAGUS (BARIUM SWALLOW) WITH FLUOROSCOPY REASON FOR EXAM: Female, 35 years old. DYSPHAGIA TECHNIQUE: 19 view(s) of the esophagus were obtained following swallowing of barium. FLUOROSCOPY TIME (if supplied): (32 seconds) minutes/seconds COMPARISON: None. FINDINGS: There is no demonstrated esophageal foreign body. There is no demonstrated stricture or mucosal abnormality. Normal gastroesophageal junction, without a demonstrated hiatal hernia. The patient ingested a 12 mm tablet of barium without any difficulty. Normal visualized aortic arch and descending thoracic aorta. Normal visualized pulmonary parenchyma. Normal visualized osseous structures of the thorax. RAD/Esophagus Dual Contrast IMPRESSION: Normal plain film x-ray examination (barium swallow) of the esophagus. Electronically Signed: Sandip Cox MD at 9:53 EDT , Service support ,
== END ==
PROVIDERS: PCP Internal Medicine; Referring Provider Otolaryngology; Visit Provider Otolaryngology
DX: R13.10 Dysphagia, unspecified (principal); K21.9 Gastro-esophageal reflux disease without esophagitis
CPT/HCPCS: 74221

== ENCOUNTER → 2021-04-21 15:27 | Outpatient (CLI) | payer MEDICAID, SELFPAY | PROVIDERS: PCP Internal Medicine; Visit Provider Otolaryngology | DX: J02.9 Acute pharyngitis, unspecified (principal) | CPT/HCPCS: 87070 ==

== ENCOUNTER → 2022-01-24 | Outpatient (CLI) | payer MEDICAID, SELFPAY ==
[2022-01-24 12:17] LABS: Absolute Neutrophil Count 6.3 X10^3/uL (2.0-7.7); Basophil# 0.02 X10^3/uL; Basophil% 0.2 % (0-1); Eosinophil# 0.32 X10^3/uL; Eosinophils% 3.4 % (0-5); Hematocrit 41.8 % (37-47); Hemoglobin 13.6 g/dL (12.0-15.0); Lymphocyte % 24.1 % (19-41); Mean Corp Hgb Conc 32.5 g/dL (32-36); Mean Corpuscular Hgb 29.1 pg (27.0-32.0); Mean Corpuscular Volume 89.3 fL (81-99); Mean Platelet Vol. 10.3 fl (6.2-12.0); Monocyte# 0.53 X10^3/uL; Monocyte% 5.6 % (0-10); NRBC Flagged by Analyzer 0 % (0-5); Neutrophil # 6.33 X10^3/uL (2.7-7.7); Neutrophil % 66.4 % (47-70); Platelet Count 430 K/mm3 (150-450); RBC Distribution Width CV 12.6 % (11.6-14.6); RBC Distribution Width SD 41.1 fl (35.1-43.9); Red Blood Count 4.68 M/mm3 (4.2-5.4); White Blood Count 9.5 K/mm3 (4.4-11.0)
[2022-01-24 12:53] LABS: Hemoglobin A1c 6.1 % (3.8-5.6)
[2022-01-24 13:02] LABS: ALB/GLOB Ratio 0.9 RATIO (0.9-2.4); AST(SGOT) 16 U/L (15-37); Alanine Aminotransfer ALT/SGPT 29 U/L (13-56); Albumin, Serum 3.7 g/dL (3.2-5.0); Alkaline Phosphatase 79 U/L (45-117); Anion Gap 6 (5-15); BUN 11 mg/dL (7-18); BUN/Creat Ratio 12.9 RATIO (10-20); Calcium,Total 8.6 mg/dL (8.5-10.1); Chloride 106 mmol/L (98-107); Creatinine, Serum 0.85 mg/dL (0.55-1.02); EST Glomerular Filtration Rate 79 mL/min (>60); Est Glom Filt Rate - Afr Amer 96 mL/min (>60); Free T3 2.5 pg/mL (2.18-3.98); Globulin 4.1 g/dL (2.2-4.2); Glucose 129 mg/dL (74-106); Potassium 3.9 mmol/L (3.5-5.1); Protein, Total 7.8 g/dL (6.4-8.2); Sodium Level 138 mmol/L (136-145); T4 Free Direct 1.08 ng/dL (0.76-1.46)
== END | disposition home or self-care (01) ==
LOC: BIMLAB 10:46
PROVIDERS: PCP Internal Medicine; Referring Provider Internal Medicine; Visit Provider Internal Medicine
DX: O24.410 Gestational diabetes mellitus in pregnancy, diet controlled (principal); O99.891 Other specified diseases and conditions complicating pregnancy; O16.9 Unspecified maternal hypertension, unspecified trimester; O99.619 Diseases of the digestive system complicating pregnancy, unspecified trimester; R00.2 Palpitations; K21.9 Gastro-esophageal reflux disease without esophagitis; R10.13 Epigastric pain; K62.5 Hemorrhage of anus and rectum; Z3A.00 Weeks of gestation of pregnancy not specified
CPT/HCPCS: 36415; 80053; 83036; 84439; 84443; 84481; 85025

== ENCOUNTER 2022-02-02 10:53 | Day surgery (SDC) | payer MEDICAID, SELFPAY ==
[2022-02-02] VITALS (7 sets, daily range): BP systolic 85–127; BP diastolic 60–86; PULSE 82–98; RESP 16–18; TEMP 36.8–37.4; O2SAT 95–99; BMI 33.9
--- NOTE | 2022-02-02 | COLBX_PTH ---
PATIENT: PINKY CONDE LOC: EN U#:[id number] AGE/SX: 36/F ROOM: RE02/02/[address]: Dr. Radha Rios MD : 1985 BED: DIS: 02/02/2022 SPEC #: [id number] RECD: 02/03/22 08:43 STATUS: DAVID ANALI #: [id number] REID: 02/02/22 00:[address]: Radha Rios DEPT: SURGICAL PATHOLOGY RECD BY: Cruz Dover ENTERED: 02/03/22 08:43 SP TYPE: COLON BX OTHR DR: Dr. Nayana King MD Tissues: A - Duodenum, NOS B - Gastric mucous membrane C - Gastric mucous membrane D - Gastric mucous membrane E - Ascending colon Procedures: Special Stain Group II Surgery Specimen Level IV Alcian Blue/PAS (control) HEADER OPERATION: Colonoscopy, EGD ([facility]) PRE-OP DIAGNOSIS: Bright red blood per rectum, GERD TISSUE SUBMITTED: A ? Duodenal bulb biopsy, B ? Antrum biopsy for histo and H. pylori, C ? Gastric polyp biopsy, D ? GE junction biopsy, E ? Ascending polyps biopsy x2 MICROSCOPIC DIAGNOSIS A. 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 B. Gastric antrum, biopsy: Chronic gastritis. See comment. C. Gastric polyp, biopsy: Fundic gland polyp. D. Gastroesophageal junction, biopsy: Mild chronic inflammation. Focal changes of reflux. No evidence of goblet cell metaplasia. See comment. E. Ascending colon polyps, biopsy: Fragments of hyperplastic polyp. AM:carlos 02/04/2022 COMMENT B. The results of immunohistochemistry for Helicobacter pylori will be reported separately ([id number]). D. Alcian blue/PAS stain with matched control supports the above diagnosis. MICROSCOPIC DESCRIPTION Slides are reviewed. GROSS DESCRIPTION A - Received in fixative is one container labeled with the patient's name and designated duodenal bulb biopsy. The specimen consists of one irregular fragment of light dumont soft tissue that measures 0.3 x 0.3 x 0.1 cm. The specimen is totally submitted in one cassette. B - Received in fixative is one container labeled with the patient's name and designated antrum biopsy. The specimen consists of one irregular fragment of light dumont soft tissue that measures 0.4 x 0.3 x 0.1 cm. The specimen is totally submitted in one cassette. C - Received in fixative is one container labeled with the patient's name and designated gastric polyp biopsy. The specimen consists of one irregular fragment of light dumont soft tissue that measures 0.3 x 0.3 x 0.1 cm. The specimen is totally submitted in one cassette. D - Received in fixative is one container labeled with the patient's name and designated GE junction biopsy. The specimen consists of one irregular fragment of light dumont soft tissue that measures 0.3 x 0.3 x 0.1 cm. The specimen is totally submitted in one cassette. E - Received in fixative is one container labeled with the patient's name and designated ascending polyp biopsy. The specimen consists of multiple irregular fragments of light dumont soft tissue that in aggregate measure 2 x 0.3 x 0.1 cm. The specimen is totally submitted in one cassette. / SJ:rg 02/03/2022 TC:3 CPT: 37905 x5, 21961
[2022-02-02] MEDS: Lactated Ringers 1,000 ML 15 ML IV (11:05)
--- NOTE | 2022-02-02 11:14 | PCM.HP.BLA ---
History and Physical Date of Admission: 02/02/22 Date of Service: 01/27/22 MR#:[id number]:[id number]: PINKY CONDERep #:[id number]:1985 Provider:Donte Feliz/Sex: 36/F [facility] Vital Signs 01/27/22 14:09 Height 5 ft 6 in Weight: 216 lb 4 oz BMI 34.9 BP 149/92 H Blood Pressure Location Rt brachial Position Sitting Respiration 18 Pulse 85 Pulse Source NIBP Temp 97.7 F L Temp Source Temporal Pulse Oximetry (%) 98 Oxygen Delivery Method room air Intake Visit Reasons: ABDOMINAL PAIN AND BRB IN RECTUM OCCASIONALLY Chief Complaint: BLOOD IN STOOL, NAUSEA, ABD PAIN Substance Abuse Nurse Required: No Is patient in pain?: No Allergies clove Allergy (Verified 01/31/22 13:30) tongue tingling Medications fluticasone propionate 50 mcg/actuation nasal spray,suspension 1 spray INTRANASAL BID 07/23/20 [History Confirmed 01/31/22] fluticasone propionate 110 mcg/actuation HFA aerosol inhaler 1 puff INHALATION Q12H #12 g 08/24/21 [Rx Confirmed 01/31/22] losartan 50 mg tablet 50 mg PO DAILY #90 tab 09/13/21 [Rx Confirmed 01/31/22] pantoprazole 40 mg tablet,delayed release 40 mg PO DAILY #90 tab 01/11/22 [Rx Confirmed 01/31/22] multivitamin 1 tab PO DAILY 01/31/22 [History Confirmed 01/31/22] omega-3 fatty acids [Arnold 3] 1,000 mg PO DAILY 01/31/22 [History Confirmed 01/31/22] Is last menstrual period known: No Post menopausal: No Patient : No PFSH Medical History (Updated 01/31/22 @ 13:38 by Roxy Tirado) Acute maxillary sinusitis, unspecified Asthma Fibromyalgia Gastric reflux GERD (gastroesophageal reflux disease) Gestational [-induced] hypertension without significant proteinuria, complicating childbirth History of echocardiogram History of gestational diabetes History of irregular heartbeat History of lump in breast Hypertension Surgical History (Updated 01/31/22 @ 13:38 by Roxy Tirado) History of section History of gynecologic surgery History of toe surgery History of tubal ligation Hx of colonoscopy Family History Grandfather Alcoholism Arthritis Hypertension Hyperlipemia Mother Arthritis Hyperlipemia Hypertension Cancer melanoma Grandmother Cancer melanoma Hyperlipemia Hypertension Father Heart disease Myocardial infarction Diabetes Social History Smoking Status: Never smoker alcohol intake: never substance use type: does not use what type of physical activity do you participate in: walking HPI HPI HPI: PINKY CONDE, is a 36 F who presents to the office today for EGD and colonoscopy. Patient's last colonoscopy was 06/2018 showed grade 1 internal hemorrhoids otherwise negative. Patient reports having some mid abdominal pain refer for she will notice some nausea and feel like she will have along with abdominal pain but she has normal stools and a moderate amount of bright red blood denies any clots patient states this happens about every 5 to 6 weeks. Patient states patient she typically has bowel movements daily. Patient denies any rectal pain or straining. Patient states she has been on Protonix for about 2 years she normally has some epigastric pain little bit of esophageal burning with this however the medication does control the symptoms. Patient is going to be starting a Holter monitor for the next 3 days due to racing heart per her PCP. ROS Cardio Cardiovascular: Yes high blood pressure and palpitations; No chest pain Resp Respiratory: No shortness of breath and No cough Gastro Gastrointestinal: Yes abdominal pain, Yes nausea or vomiting, No diarrhea, No constipation, Yes blood in stool, Yes acid reflux, Yes hemorrhoids, No ulcers, No gallbladder problem and Yes black,tarry stools Exam Const General: cooperative, healthy appearing, comfortable and no acute distress Neck Neck: normal visual inspection Resp Effort & Inspection: normal respiratory effort Cardio Rate: regular rate GI Inspection: non-distended Palpation: soft, no guarding and nontender Skin General: no rashes or lesions noted Neuro General: patient oriented x3 Psych Affect: normal affect COVID (Procedure Consent) Procedure Criteria Procedure Criteria: Yes Elective The surgeon/proceduralist and patient have discussed in detail the risk of exposure to and/or potential harm posed by the COVID-19 virus with having a surgery/procedure at this time versus the risk of delaying the surgery/procedure. It is not possible to know either the risk of delaying the surgery or procedure or chance of getting an infection with perfect accuracy, but a joint decision was made between the patient and the surgeon/proceduralist to proceed at this time with the scheduled surgery/procedure as indicated on the consent form. Assessment and Plan Assessment and Plan (1) BRBPR (bright red blood per rectum): Status: Acute (2) GERD (gastroesophageal reflux disease): Status: Chronic Plan - Dr. Radha Rios MD: I have discussed the above with the patient. I have offered the patient EGD and colonoscopy for evaluation. I have explained the risks/benefits of the procedure and described the procedure. I have discussed the risks with the patient, including but not limited to: infection, bleeding, perforation of the GI tract requiring emergency surgery, inability to complete the procedure, injury to any internal organs, complications of anesthesia, etc. - the patient understands and agrees to proceed. I have answered all the patient's questions to the patient's satisfaction and the patient has no further questions. The patient has been given instructions for the colon cleansing preparation. 1 day of clears, MiraLAX Dulcolax split prep. Radha Rios M.D. Pager: [phone] [facility] [address] [place] [address], [address] [place] [address] Office: [phone] Plan Details Goals & Barriers: Goals Decrease spasm Improve ROM Decrease pain Coding Level of Care Code Off vis,new,level 3 Diagnoses BRBPR (bright red blood per rectum) K62.5 GERD (gastroesophageal reflux disease) K21.9 02/01/22 1507<Electronically signed by Radha Rios MD>Date Radha Rios MD
--- NOTE | 2022-02-02 12:00 | IMM_PTH ---
PATIENT: PINKY CONDE LOC: EN U#:[id number] AGE/SX: 36/F ROOM: RE02/02/[address]: Dr. Radha Rios MD : 1985 BED: DIS: 02/02/2022 SPEC #: [id number] RECD: 02/03/22 09:47 STATUS: DAVID REQ #: [id number] REID: 02/02/22 12:[address]: Radha Rios DEPT: IMMUNOHISTOCHEMISTRY RECD BY: Carrie Blanco ENTERED: 02/03/22 09:47 SP TYPE: IMMUNO OTHR DR: Dr. Nayana King MD Tissues: B - Stomach, NOS Procedures: H Pylori (initial) PHYSICIAN & INSTITUTION [place] [id number] SPECIMEN INFORMATION: Tissue Source: B ? Antrum biopsy Clinical Info: Bright red blood per rectum Specimen Number: [id number] CPT code: 09435 METHODOLOGY: Deparaffinized sections of prefer/formalin-fixed tissue or PAP/DQ stained slides are incubated with monoclonal/polyclonal antibodies/oligonucleotide probes. Localization is made via biotin free immunoperoxidase method. Appropriate controls are performed and reacted as expected. Results on target cell population are indicated in the following table: RESULTS: ANTIBODY / CLONE RESULT Block B H Pylori (polyclonal) negative These tests were developed and their performance characteristics determined by [facility]. They may not have been cleared or approved by the U.S. Food and Drug Administration. The FDA has determined that such clearance or approval is not necessary. The above immunohistochemical/dualISH markers are ordered and reviewed by the Pathologist. INTERPRETATION: B. Antrum, biopsy: Negative for Helicobacter pylori organisms. AM:carlos 02/04/2022
--- NOTE | 2022-02-02 12:56 | OP.EGD_ITS ---
Patient Name: Claudine Coles Procedure Date: 02/02/2022 12:08 PM Date of : 1985 Age: 36 Procedure: Upper GI endoscopy Indications: Esophageal reflux Providers: Radha Rios MD Referring MD: Nayana King Medicines: Monitored Anesthesia Care Patient Profile: This is a 36 year old female. Complications: No immediate complications. Procedure: Pre-Anesthesia Assessment: - Prior to the procedure, a History and Physical was performed, and patient medications and allergies were reviewed. The patient's tolerance of previous anesthesia was also reviewed. The risks and benefits of the procedure and the sedation options and risks were discussed with the patient. All questions were answered, and informed consent was obtained. Prior Anticoagulants: The patient has taken no previous anticoagulant or antiplatelet agents. ASA Grade Assessment: Per anesthesia. After reviewing the risks and benefits, the patient was deemed in satisfactory condition to undergo the procedure. After obtaining informed consent, the endoscope was passed under direct vision. Throughout the procedure, the patient's blood pressure, pulse, and oxygen saturations were monitored continuously. The pediatric colonoscope was introduced through the mouth, and advanced to the second part of duodenum. The upper GI endoscopy was accomplished without difficulty. The patient tolerated the procedure well. Scope In: 12:15:19 PM Scope Out: 12:27:48 PM Total Procedure Duration Time 0 hours 12 minutes 29 seconds Findings: The Z-line was irregular and was found 40 cm from the incisors. Biopsies were taken with a cold forceps for histology. Mildly erythematous mucosa without bleeding was found in the gastric antrum. Biopsies were taken with a cold forceps for histology. Biopsies were taken with a cold forceps for Helicobacter pylori testing. A few less than 5 mm pedunculated and sessile polyps with no bleeding and no stigmata of recent bleeding were found in the gastric body. The polyp was removed with a cold biopsy forceps. Resection and retrieval were complete. A few less than 5 mm nodules were found in the duodenal bulb. Biopsies were taken with a cold forceps for histology. The cardia and gastric fundus were normal on retroflexion. Impression: - Z-line irregular, 40 cm from the incisors. Biopsied. - Erythematous mucosa in the antrum. Biopsied. - A few gastric polyps. Resected and retrieved. - Nodule found in the duodenum. Biopsied. Recommendation: - Discharge patient to home. - Resume previous diet. - Use Protonix (pantoprazole) 40 mg PO daily. - Continue present medications. - Await pathology results. Procedure Code(s): --- Professional --- 19116, Esophagogastroduodenoscopy, flexible, transoral; with biopsy, single or multiple Diagnosis Code(s): --- Professional --- K22.8, Other specified diseases of esophagus K31.89, Other diseases of stomach and duodenum K31.7, Polyp of stomach and duodenum K21.9, Gastro-esophageal reflux disease without esophagitis CPT copyright 2017 [employer]. All rights reserved. The codes documented in this report are preliminary and upon training and development professional review may be revised to meet current compliance requirements. MD Radha Aquino MD 02/02/2022 12:55:35 PM This report has been signed electronically. Number of Addenda: 0 Note Initiated On: 02/02/2022 12:08 PM
--- NOTE | 2022-02-02 12:57 | OP.CCLET_ITS ---
02/02/2022 Nayana King [facility] [address] [place] [address] Re : Upper GI endoscopy procedure for Claudine Coles Dear Dr. King This procedure was performed on Wednesday, February 02, 2022. My impressions and recommendations are as follows: Impressions : - Z-line irregular, 40 cm from the incisors. Biopsied. - Erythematous mucosa in the antrum. Biopsied. - A few gastric polyps. Resected and retrieved. - Nodule found in the duodenum. Biopsied. Recommendations : - Discharge patient to home. - Resume previous diet. - Use Protonix (pantoprazole) 40 mg PO daily. - Continue present medications. - Await pathology results. My findings are described in the full procedure note, which is enclosed. If I can be of further assistance, please feel free to contact me at Doctor phone number(s): , Work: . Sincerely, MD Radha Aquino MD 02/02/2022 12:55:35 PM This report has been signed electronically.
--- NOTE | 2022-02-02 13:03 | OP.CCLET_ITS ---
02/02/2022 Nayana King [facility] [address] [place] [address] Re : Colonoscopy procedure for Claudine Coles Dear Dr. King This procedure was performed on Wednesday, February 02, 2022. My impressions and recommendations are as follows: Impressions : - Hemorrhoids found on perianal exam. - Non-bleeding internal hemorrhoids. - Diverticulosis in the sigmoid colon. - Two 3 to 4 mm polyps in the ascending colon, removed with a cold biopsy forceps. Resected and retrieved. - The examination was otherwise normal. Recommendations : - Discharge patient to home. - High fiber diet. - Continue present medications. - Await pathology results. - Repeat colonoscopy in 5 years for surveillance based on pathology results. My findings are described in the full procedure note, which is enclosed. If I can be of further assistance, please feel free to contact me at Doctor phone number(s): , Work: . Sincerely, MD Radha Aquino MD 02/02/2022 1:02:34 PM This report has been signed electronically.
--- NOTE | 2022-02-02 13:03 | OP.COLON_ITS ---
Patient Name: Claudine Coles Procedure Date: 02/02/2022 12:27 PM Date of : 1985 Age: 36 Procedure: Colonoscopy Indications: Rectal bleeding Providers: Radha Rios MD Referring MD: Nayana King Medicines: Monitored Anesthesia Care Patient Profile: This is a 36 year old female. Last Colonoscopy: 2017. Complications: No immediate complications. Procedure: Pre-Anesthesia Assessment: - Prior to the procedure, a History and Physical was performed, and patient medications and allergies were reviewed. The patient's tolerance of previous anesthesia was also reviewed. The risks and benefits of the procedure and the sedation options and risks were discussed with the patient. All questions were answered, and informed consent was obtained. Prior Anticoagulants: The patient has taken no previous anticoagulant or antiplatelet agents. ASA Grade Assessment: Per anesthesia. After reviewing the risks and benefits, the patient was deemed in satisfactory condition to undergo the procedure. After I obtained informed consent, the scope was passed under direct vision. Throughout the procedure, the patient's blood pressure, pulse, and oxygen saturations were monitored continuously. The pediatric colonoscope was introduced through the anus and advanced to the cecum, identified by the appendiceal orifice, IC valve and transillumination. The colonoscopy was performed without difficulty. The patient tolerated the procedure well. The quality of the bowel preparation was good. Scope In: 12:29:31 PM Scope Withdrawal Time 0 hours 12 minutes 54 seconds Scope Out: 12:47:43 PM Total Procedure Duration Time 0 hours 18 minutes 12 seconds Findings: Hemorrhoids were found on perianal exam. Non-bleeding internal hemorrhoids were found. The hemorrhoids were Grade I (internal hemorrhoids that do not prolapse). Scattered small-mouthed diverticula were found in the sigmoid colon. Two sessile polyps were found in the ascending colon. The polyps were 3 to 4 mm in size. These polyps were removed with a cold biopsy forceps. Resection and retrieval were complete. The exam was otherwise without abnormality. Impression: - Hemorrhoids found on perianal exam. - Non-bleeding internal hemorrhoids. - Diverticulosis in the sigmoid colon. - Two 3 to 4 mm polyps in the ascending colon, removed with a cold biopsy forceps. Resected and retrieved. - The examination was otherwise normal. Recommendation: - Discharge patient to home. - High fiber diet. - Continue present medications. - Await pathology results. - Repeat colonoscopy in 5 years for surveillance based on pathology results. Procedure Code(s): --- Professional --- 53331, Colonoscopy, flexible; with biopsy, single or multiple Diagnosis Code(s): --- Professional --- K64.0, First degree hemorrhoids D12.2, Benign neoplasm of ascending colon K62.5, Hemorrhage of anus and rectum K57.30, Diverticulosis of large intestine without perforation or abscess without bleeding CPT copyright 2017 [employer]. All rights reserved. The codes documented in this report are preliminary and upon jig builder review may be revised to meet current compliance requirements. MD Radha Aquino MD 02/02/2022 1:02:34 PM This report has been signed electronically. Number of Addenda: 0 Note Initiated On: 02/02/2022 12:27 PM
== END 2022-02-02 13:48 | disposition home or self-care (01) ==
LOC: EN 10:53 → AC 10:55
PROVIDERS: PCP Internal Medicine; Referring Provider Internal Medicine; Visit Provider Surgery
PROC: 0DJD8ZZ Inspection of Lower Intestinal Tract, Via Natural or Artificial Opening Endoscopic (ICD-10-PCS; CPT 45378; principal; 2022-02-02 11:55)
DX: K64.0 First degree hemorrhoids (principal); J44.9 Chronic obstructive pulmonary disease, unspecified; K21.9 Gastro-esophageal reflux disease without esophagitis; K64.9 Unspecified hemorrhoids; K63.5 Polyp of colon; K57.30 Diverticulosis of large intestine without perforation or abscess without bleeding; I10 Essential (primary) hypertension; K31.7 Polyp of stomach and duodenum; K22.89 Other specified disease of esophagus; K31.89 Other diseases of stomach and duodenum; K29.50 Unspecified chronic gastritis without bleeding; Z79.899 Other long term (current) drug therapy
CPT/HCPCS: 45380; 43239; 87426; 88305; 88313; 88342; C9803; J7120; J2405